=== PATIENT | male | born 1990 | race African-American/Black ===

== ENCOUNTER 2020-11-01 11:19 | Emergency (ER) | payer OTHER, SELFPAY ==
--- NOTE | 2020-11-01 11:34 | ED.MALEGU ---
HPI - Male Genitourinary General Chief complaint: Urogenital-Male Stated complaint: STD Test Time Seen by Provider: 11/01/20 11:31 Source: patient and RN notes reviewed Mode of arrival: ambulatory Limitations: no limitations History of Present Illness HPI Narrative: 30-year-old male presents with concern for STD exposure, dysuria, penile discharge. Reports symptoms are approximately 1 week. He denies frequency, urgency, flank pain, fever, nausea, vomiting. Denies any lesions or open sores MD Complaint: possible STD exposure Related Data Allergies Allergy/AdvReac Type Severity Reaction Status Date / Time No Known Allergies Allergy Verified 11/01/20 11:40 Review of Systems Review of Systems: Narrative: CONSTITUTIONAL: Denies malaise, chills, sweats, or fever. CARDIOVASCULAR: Denies chest pain, palpitations RESPIRATORY: Denies cough or dyspnea. GASTROINTESTINAL: Denies abdominal pain, nausea, vomiting, diarrhea, bloody, or mucous stools. GENITOURINARY: Reports penile discharge, dysuria. Denies frequency, urgency, hematuria. SKIN: Denies lesions, open skin MUSCULOSKELETAL: Denies back pain or myalgia. All systems reviewed & are unremarkable except as noted in HPI and below PMFSH Comments At time of signature, agree with nursing past medical, surgical, social and family history. There is no relevant family history pertinent to the presenting complaint Exam Narrative: Exam Narrative: GENERAL: Well-appearing, well-nourished, and in no acute distress. HEAD: Normocephalic. EYES: PERRLA, conjunctivae clear. NECK: Supple. No lymphadenopathy CHEST: Clear to auscultation. No respiratory distress. HEART: Regular rate and rhythm. SKIN: Warm, dry NEURO: Alert and oriented x3. PSYCH: Normal mood and affect Course Course Emergency Course: Patient is aware of diagnosis, understands and agrees to treatment plan. Anticipatory guidance given. Patient agrees to follow-up as directed and is aware of reasons to seek care at the emergency department. Portions of this record may have been created with voice recognition software Vital Signs Vital signs: Vital Signs Pulse Rate 77 11/01/20 11:40 Respiratory Rate 16 11/01/20 11:40 Blood Pressure 143/92 H 11/01/20 11:40 Pulse Oximetry 100 11/01/20 11:40 Pulse Rate 77 11/01/20 11:40 Respiratory Rate 16 11/01/20 11:40 Blood Pressure 143/92 H 11/01/20 11:40 Pulse Oximetry 100 11/01/20 11:40 Reviewed. Pt has been instructed to follow up with his primary care provider within the next week regarding his elevated blood pressure today. MDM - Male Genitourinary MDM Narrative Medical decision making narrative: Exam findings show no acute concerns or changes; patient is non-toxic appearing and is in no distress. Patient is appropriate for outpatient treatment and follow-up. Critical Care Time Critical Care Time Critical Care Time: No Discharge Plan Discharge Clinical Impression: Possible exposure to STD Patient Disposition: Home, Self-Care Condition: Stable Instructions: Safe Sex Practices (ED) Additional Instructions: You have been tested for potential gonorrhea, chlamydia, and trichomoniasis today. You have received antibiotics for gonorrhea and chlamydia today, a prescription has been called into your pharmacy to treat trichomoniasis. You will receive a phone call in 2-3 days with the results of today's testing. It is very important that you avoid unprotected intercourse for 7 days and until your partner(s) have been treated. Please encourage your partner(s) to seek testing and treatment. When you have been exposed to sexually transmitted infections, it is important that you seek comprehensive testing, since we do not provide testing for all sexually transmitted infections. Some infections can have no symptoms, but cause serious health problems. Contact your health care provider or report to the emergency department if: You have genital swelling or p
[2020-11-01 11:40] VITALS: BP 143/92; PULSE 77; RESP 16; O2SAT 100
[2020-11-01] MEDS: cefTRIAXone 250 MG VIAL IM (11:53)
[2020-11-01] MEDS: LIDOCAINE HCL 1% LOCAL INJ 20 ML VIAL INFILTRATE (11:53)
[2020-11-01] MEDS: AZITHROMYCIN 250 MG TABLET 1000 MG PO (11:54)
== END 2020-11-01 12:30 | disposition home or self-care (01) ==
PROVIDERS: Emergency Provider Nurse Practitioner
DX: R36.9 Urethral discharge, unspecified (principal); R30.0 Dysuria
CPT/HCPCS: 87491; 87591; 87661; 96372; 99203; A9270; G0463; J0696